=== PATIENT | male | born 1950 | race Caucasian/White ===

== ENCOUNTER 2019-07-20 20:36 | Emergency (ER) | payer MEDICARE ==
[2019-07-20] MEDS ORDERED: LIDOCAINE 2% URO-JET 5 ML SYRINGE UR STA (21:31)
--- NOTE | 2019-07-20 21:52 | ED Physician Documentation ---
PD HPI MALE - Stated complaint Stated Complaint: UNABLE TO URINATE - Chief complaint Chief Complaint: UTI - History obtained from History obtained from: Patient, Family - History of Present Illness Timing - onset: How many hours ago (5), Today Timing - duration: Hours (5) Timing - details: Abrupt onset Pain level max: 6 Pain level now: 5 Associated symptoms: Unable to urinate PD HPI MALE CONTRIB FACTORS: Other (states has been constipated). No: Sexually active, Not sexually active, Homosexual, Exposed to STD, Indwelling catheter Recently seen: Not recently seen Review of Systems Constitutional: denies: Fever, Chills Respiratory: denies: Cough GI: reports: Constipation. denies: Vomiting, Diarrhea, Hematemesis Skin: denies: Rash Musculoskeletal: denies: Neck pain, Back pain PD PAST MEDICAL HISTORY - Past Medical History Past Medical History: No - Allergies Allergies/Adverse Reactions: Allergies Allergy/AdvReac Type Severity Reaction Status Date / Time No Known Drug Allergies Allergy Verified 07/20/19 20:41 - Living Situation Living Arrangement: reports: At home (lives in [place] and [place], here visiting) - Social History Does the pt have substance abuse?: No - Family History Family history: reports: Non contributory PD ED PE NORMAL - Vitals Vital signs reviewed: Yes - General General: Alert and oriented X 3, Well developed/nourished, Other (anxious) - HEENT HEENT: Moist mucous membranes - Neck Neck: Supple, no meningeal sign - Cardiac Cardiac: RRR - Respiratory Respiratory: No respiratory distress, Clear bilaterally - Abdomen Abdomen: Other (distended bladder to level of umbilicus, firm) - Rectal Rectal: Other (firm distended mass to anterior wall of rectum, unable to pass digit past this.) - Derm Derm: Warm and dry - Neuro Neuro: Alert and oriented X 3 Results - Vitals Vitals: Vital Signs - 24 hr 07/20/19 07/20/19 20:39 22:14 Temperature 36.5 C Heart Rate 67 75 Respiratory 20 24 Rate Blood Pressure 154/83 H 151/133 H O2 Saturation 99 98 Oxygen O2 Source Room air - Labs Labs: Laboratory Tests 07/20/19 07/20/19 22:00 22:00 WBC 9.3 RBC 4.38 L Hgb 13.6 L Hct 39.9 L MCV 91.1 MCH 31.1 H MCHC 34.1 RDW 12.2 Plt Count 177 MPV 9.0 Neut # (Auto) 6.7 H Lymph # (Auto) 1.[address] [place] # (Auto) 1.1 H Eos # (Auto) 0.1 Baso # (Auto) 0.0 Absolute Nucleated RBC 0.00 Nucleated RBC % 0.0 Sodium 136 Potassium 3.0 L Chloride 100 L Carbon Dioxide 24 Anion Gap 12.0 BUN 21 H Creatinine 1.2 Estimated GFR (MDRD) 60 L Glucose 124 H Calcium 9.5 Total Bilirubin 1.0 AST 29 ALT 21 Alkaline Phosphatase 84 Total Protein 7.5 Albumin 4.5 Globulin 3.0 Albumin/Globulin Ratio 1.5 Lipase 30 PD MEDICAL DECISION MAKING - ED course Complexity details: reviewed results, re-evaluated patient, considered differential, d/w patient, d/w security system sales consultant ED course: 68-year-old male with acute urinary retention. Unable to pass a catheter. Attempted a 16 Greek, 16 Greek coud, 12 Greek coud and a 10 Greek red Karthik catheter. None were able to have urine return. Will transfer to [facility] for further care. Dr. Longo (urology) recommends transfer to the ER. Dr. Sellers accepts in transfer. COBRA forms completed. Patient does not want to travel by ambulance. His brother will take him directly there. This document was made in part using voice recognition software. While efforts are made to proofread this document, sound alike and grammatical errors may occur. Departure - Departure Disposition: 02 Transfer Acute Care Hosp Clinical Impression: Acute urinary retention Condition: Stable Comments: Go directly to the emergency department at [facility]. I spoke with Dr. Longo, the urologist and Dr. Sellers, the emergency department physician josefina. They are expecting you Discharge Date/Time: 07/20/19 22:25
[2019-07-20 22:13] LABS: BASOPHILS % (AUTO) 0.2 %; EOSINOPHILS # (AUTO) 0.1 10^3/uL (0.0-0.7); EOSINOPHILS % (AUTO) 0.8 %; HGB - HEMOGLOBIN 13.6 g/dL (14.0-18.0); LYMPHOCYTES # (AUTO) 1.4 10^3/uL (1.5-3.5); LYMPHOCYTES % (AUTO) 14.5 %; MEAN CORPUSCULAR HEMOGLOBIN 31.1 pg (27.0-31.0); MEAN CORPUSCULAR HGB CONC 34.1 g/dL (32.0-36.0); MEAN CORPUSCULAR VOLUME 91.1 fL (80.0-94.0); MONOCYTES # (AUTO) 1.1 10^3/uL (0.0-1.0); MONOCYTES % (AUTO) 11.8 %; NEUTROPHILS # (AUTO) 6.7 10^3/uL (1.5-6.6); NEUTROPHILS % (AUTO) 72.3 %; PLT - PLATELET COUNT 177 10^3/uL (130-450); RED BLOOD COUNT 4.38 10^6/uL (4.70-6.10); RED CELL DISTRIBUTION WIDTH 12.2 % (12.0-15.0); WHITE BLOOD COUNT 9.3 x10^3/uL (4.8-10.8)
[2019-07-20 22:14] VITALS: BP 151/133
[2019-07-20] MEDS ORDERED: ONDANSETRON ODT 4 MG TABLET TL STA (22:15)
[2019-07-20] MEDS ORDERED: LORazepam 0.5 MG TABLET PO STA (22:15)
[2019-07-20 22:29] LABS: ALBUMIN 4.5 g/dL (3.2-5.5); ALBUMIN/GLOBULIN RATIO 1.5 (1.0-2.2); CALCIUM 9.5 mg/dL (8.5-10.3); CREATININE 1.2 mg/dL (0.6-1.2); TOTAL PROTEIN 7.5 g/dL (6.7-8.2)
== END 2019-07-20 22:25 | disposition short-term general hospital (02) ==
LOC: ED 20:36
DX: R33.9 Retention of urine, unspecified (principal); K62.89 Other specified diseases of anus and rectum; K59.00 Constipation, unspecified
CPT/HCPCS: 36415; 51702; 80053; 83690; 85025; 99284; 99285; A9270; Q0162